=== PATIENT | female | born 1945 | race Two or more races ===

== ENCOUNTER 2017-12-09 09:33 | Outpatient (CLI) | payer OTHER | END 2017-12-09 17:00 | disposition home or self-care (01) | LOC: SONOGRAMA 09:33 | DX: N28.1 Cyst of kidney, acquired (principal) ==

== ENCOUNTER 2020-11-29 09:43 | Outpatient (CLI) | payer OTHER | END 2020-11-29 10:05 | disposition home or self-care (01) | LOC: MAMO-SONO 09:43 | DX: R07.9 Chest pain, unspecified (principal); M54.5 Low back pain; N60.11 Diffuse cystic mastopathy of right breast; N60.12 Diffuse cystic mastopathy of left breast; Z12.31 Encounter for screening mammogram for malignant neoplasm of breast ==

== ENCOUNTER → 2020-12-18 12:50 | Outpatient (CLI) | payer OTHER | END | disposition home or self-care (01) | LOC: NUCLEAR 12:50 | DX: M81.0 Age-related osteoporosis without current pathological fracture (principal) ==

== ENCOUNTER 2022-10-26 13:35 | Outpatient (CLI) | payer OTHER | END 2022-10-26 13:36 | disposition home or self-care (01) | LOC: NUCLEAR 13:35 | DX: Z13.820 Encounter for screening for osteoporosis (principal) ==

== ENCOUNTER 2024-05-08 10:52 | Emergency (ER) | payer OTHER ==
[~2024-05-08] VITALS: Ht 167.6 cm; Wt 68.0 kg
[2024-05-08] MEDS ORDERED: DICLOFENAC SODI75 MG (10:54)
[2024-05-08] MEDS ORDERED: FOLIC ACID1 MG (10:54)
[2024-05-08] MEDS ORDERED: LISINOPRIL20 MG (10:54)
[2024-05-08] MEDS ORDERED: FEROSUL (10:55)
[2024-05-08 11:30] LABS: HEMATOCRIT 31.8 % (36.0-45.00); HEMOGLOBIN 10.6 g/dL (12.0-15.00); MEAN CELL VOLUME 83.2 fL (80.00-100.00); MEAN CORPUSCULAR HEMOGLOBIN 27.8 pg (27.00-32.0); MEAN CORPUSCULAR HGB CONC 33.5 g/dl (32.0-36.0); PLATELET COUNT 234 K/uL (150-450); RED BLOOD COUNT 3.82 M/uL (4.00-6.00); RED CELL DISTRIBUTION WIDTH 14.7 % (11.5-14.5)
[2024-05-08 12:31] LABS: ALBUMIN 3.6 gm/dL (3.4-5.0); BILIRUBIN TOTAL 1.02 mg/dL (0.3-1.2); CALCIUM 9.1 mg/dL (8.5-10.1); CREATININE SERUM 0.96 mg/dL (0.55-1.02); GFR 56.36; GLOBULINA 3.6 G/DL (2.4-3.5); POTASSIUM 3.55 mEq/L (3.5-5.1); TOTAL PROTEIN 7.2 gm/dL (6.4-8.2)
== END 2024-05-08 16:53 | disposition home or self-care (01) ==
LOC: ER 10:52
PROVIDERS: General Practice
DX: R42 Dizziness and giddiness (principal); I67.82 Cerebral ischemia; I10 Essential (primary) hypertension; Z88.0 Allergy status to penicillin

== ENCOUNTER 2025-08-07 12:48 | Outpatient (CLI) | payer OTHER ==
[~2025-08-07 12:48] MED LIST: DICLOFENAC SODI75 MG; FEROSUL; FOLIC ACID1 MG; LISINOPRIL20 MG
== END 2025-08-07 12:57 | disposition home or self-care (01) ==
LOC: MRI 12:48
DX: M25.562 Pain in left knee (principal)
CPT/HCPCS: 73721